=== PATIENT | female | born 2000 | race Caucasian/White ===

== ENCOUNTER 2023-01-16 13:50 | Inpatient (IN) | payer OTHER, SELFPAY ==
[2023-01-16] VITALS (75 sets, daily range): BP systolic 111–143; BP diastolic 69–96; PULSE 51–164; RESP 15–20; TEMP 36.2–37.2; O2SAT 82–100; BMI 27.6
--- NOTE | 2023-01-16 14:51 | WPDOBADMIT ---
Obstetrics - Admit Note Admission Note: record reviewed. No pertinent additions to the history and/or any subsequent changes in the physical findings that are not consistent with the expected course of the were found. Admitted to LD in labor, AROM, moderate amount of clear, odorless fluid, anticipate vaginal delivery Additions to the history and/or subsequent changes in the physical findings follow. None.
[2023-01-16] MEDS: LACTATED RINGERS 1,000 ML 125 ML IV CONT ×2 (15:05→15:43)
[2023-01-16] MEDS: ONDANSETRON INJ 4 MG/2 ML VIAL IV PUSH (15:18)
[2023-01-16 15:20] LABS: Basophils Absolute Auto 0.1 K/mm3 (0.0-0.1); Basophils Percent Auto 0.5 % (0.2-1.2); Eosinophils Percent Auto 0.3 % (0-4.4); Hematocrit 37.6 % (37.0-47.0); Hemoglobin 12.6 g/dL (12.0-15.0); Immature Granulocyte Absolute 0.06 K/mm3 (0.00-0.031); Immature Granulocyte Percent A 0.6 % (0-0.5); Lymphocytes Absolute Auto 0.86 K/mm3 (0.9-3.2); Lymphocytes Percent Auto 8.7 % (18.3-44.2); Mean Corpuscular HGB Conc 33.5 g/dl (32-36); Mean Corpuscular Hemoglobin 30.7 pg (26-34); Mean Corpuscular Volume 91.5 fl (80-100); Mean Platelet Volume 10.4 fl (7.4-10.4); Monocytes Absolute Auto 0.5 K/mm3 (0.1-0.6); Neutrophils Absolute Auto 8.4 K/mm3 (1.3-6.7); Neutrophils Percent Auto 84.9 % (45.5-73.1); Platelet Count Result 216 k/mm3 (150-375); Red Blood Count 4.11 M/mm3 (4.2-5.4); Red Cell Distribution Width 12.5 % (11.5-14.5); White Blood Count 9.9 K/mm3 (4.5-10.0)
--- NOTE | 2023-01-16 15:37 | WPDANESEPP ---
Anes - Eval Pre Procedure Procedure: epidural Date/Time: 01/16/23 15:37 Preop Diagnosis: labor pain Pre Op Diagnosis: Labor Patient Data Age: 22 Gender: F Height: 1.73 m Weight: 82.5 kg Last Vital Signs Pulse 81 01/16/23 15:31 BP 132/88 01/16/23 15:31 Allergies Allergy/AdvReac Type Severity Reaction Status Date / Time verapamil Allergy Hives Verified 12/21/22 13:35 Home Medications Medication Instructions Recorded Confirmed Type prenat.vits,иван,deg-dohm-dremq 1 tablet 12/21/22 History sertraline 50 mg tablet mg 12/21/22 History Laboratory Tests 01/16/23 14:51 WBC 9.9 K/mm3 (4.5-10.0) RBC 4.11 L M/mm3 (4.2-5.4) Hgb 12.6 g/dL (12.0-15.0) Hct 37.6 % (37.0-47.0) MCV 91.5 fl (80-100) MCH 30.7 pg (26-34) MCHC 33.5 g/dl (32-36) RDW 12.5 % (11.5-14.5) Plt Count 216 k/mm3 (150-375) MPV 10.4 fl (7.4-10.4) Immature Gran % (Auto) 0.6 H % (0-0.5) Neut % (Auto) 84.9 H % (45.5-73.1) Lymph % (Auto) 8.7 L % (18.3-44.2) [place] % (Auto) 5.0 % (2.6-8.5) Eos % (Auto) 0.3 % (0-4.4) Baso % (Auto) 0.5 % (0.2-1.2) Lymph # (Auto) 0.86 L K/mm3 (0.9-3.2) [place] # (Auto) 0.5 K/mm3 (0.1-0.6) Eos # (Auto) 0.0 K/mm3 (0-0.3) Baso # (Auto) 0.1 K/mm3 (0.0-0.1) Abs Immat Gran (auto) 0.06 H K/mm3 (0.00-0.031) Absolute Neuts (auto) 8.4 H K/mm3 (1.3-6.7) Absolute Nucleated RBC 0.0 K/mm3 (0.0-0.012) Nucleated RBC % 0.0 % (0.0-0.2) RPR Pending Patient hx anesthesia problems: none Family hx anesthesia problems: none Results Review: All pre-operative results and documents have been reviewed as part of the pre-operative evaluation. PMFSH Family History Family History Father Hypertension Afib Social History Social History Substance use: never Spiritual care concerns: No Comments patient medical hx: migraine, marijuana use, GERD, IBS, anxiety Exam Day of Procedure 01/16/23 15:37
[2023-01-16] MEDS: OXYTOCIN 30 UNITS/NS 500 ML 30 UNITS/500 ML BAG 999 UNITS IV CONT (18:57)
--- NOTE | 2023-01-16 19:10 | PM.OBPRVD ---
OB - Delivery Note Procedure Delivery date: 01/16/23 Procedure: Delivery augmentation: Rupture of Membranes Laceration Description: None (clitoral) and Perineal - 1st Degree Delivery repair: vicryl Specimen: No Quantitative Blood Loss (ml): 250 Anesthesia type: Epidural Disposition: Floor Baby Date of : 01/16/23 Time of : 18:56 Weeks of gestation at delivery: 39 Infant gender: Male presentation: vertex position: Left Occiput Anterior Placenta delivery description: Spontaneous Cord Vessel Description: 3 Vessels, Clamped/Cut and Delayed Cord Clamping score one minute: 8 score five minutes: 9
[2023-01-16] MEDS: OXYTOCIN 30 UNITS/NS 500 ML 30 UNITS/500 ML BAG 125 UNITS IV CONT (19:31)
[2023-01-16] MEDS: BENZOCAINE 20% AER SPR (*SP) 56 GM CAN 1 SPRAY TOPICAL (21:14)
[2023-01-16] MEDS: WITCH HAZEL 40 PADS 1 PAD TOPICAL (21:14)
[2023-01-16] MEDS: IBUPROFEN 600 MG TABLET PO (21:22)
--- NOTE | 2023-01-16 21:47 | PC.NURSE ---
Patient transferred to post room #290 per wheelchair from labor and delivery. Support person present. Oriented to unit, room, information board, rooming in, admission packet and security measures. Patient verbalizes understanding.
[2023-01-16] MEDS: SERTRALINE HCL 50 MG TABLET 100 MG PO (22:19)
[2023-01-17] MEDS: ACETAMINOPHEN 325 MG TABLET 650 MG PO ×3 (00:06→20:15)
[2023-01-17 05:00] VITALS: BP 132/95; PULSE 81; RESP 18; TEMP 36.6
[2023-01-17] MEDS: IBUPROFEN 600 MG TABLET PO ×3 (05:04→16:42)
[2023-01-17 05:28] LABS: Hematocrit 30.4 % (37.0-47.0); Hemoglobin 10.2 g/dL (12.0-15.0)
[2023-01-17 08:15] VITALS: BP 132/93; PULSE 83; RESP 18; TEMP 36.5
--- NOTE | 2023-01-17 10:03 | PM.OBPNVD ---
OB - PN: Subj Subjective Date/time seen: 01/17/23 10:03 Patient comments: no complaints, pain well controlled, incisional pain, tolerating diet and flatus present OB - PN: Obj Data Labs 01/17/23 05:01 Labs: Laboratory Results - last 24 hr 01/16/23 01/17/23 14:51 05:01 WBC 9.9 RBC 4.11 L Hgb 12.6 10.2 L Hct 37.6 30.4 L MCV 91.5 MCH 30.7 MCHC 33.5 RDW 12.5 Plt Count 216 MPV 10.4 Immature Gran % (Auto) 0.6 H Neut % (Auto) 84.9 H Lymph % (Auto) 8.7 L [place] % (Auto) 5.0 Eos % (Auto) 0.3 Baso % (Auto) 0.5 Lymph # (Auto) 0.86 L [place] # (Auto) 0.5 Eos # (Auto) 0.0 Baso # (Auto) 0.1 Abs Immat Gran (auto) 0.06 H Absolute Neuts (auto) 8.4 H Absolute Nucleated RBC 0.0 Nucleated RBC % 0.0 Blood Type O Positive Antibody Screen Negative OB - PN A/P Plan day: 1 Plan: routine care Comments: No problems, routine care Time Spent With Patient Time: Total time spent is greater than 50% in coordination of care (as documented) at patient's floor/unit and/or counseling patient: Exam Const: General: comfortable, no acute distress and alert Resp: Effort & Inspection: normal respiratory effort Auscultation: no crackles, no rales and no rhonchi Cardio: Rate: regular rate Heart sounds: no click, no murmurs and no rubs GI: Inspection: non-distended GI Palp: No Tenderness to palpation present (GI) Auscultation: normal bowel sounds Other: Incision - CDI Extrem: General: normal to inspection, no pedal edema and no calf tenderness
[2023-01-17] MEDS: MULTIVIT/MIN/PREN/FOL AC/IRON TABLET 1 TAB PO (10:40)
[2023-01-17] MEDS: DOCUSATE SODIUM 100 MG CAPSULE PO (10:40)
[2023-01-17 11:30] VITALS: BP 108/76; PULSE 87; RESP 18; TEMP 37.2
[2023-01-17 20:00] VITALS: BP 116/79; PULSE 92; RESP 16; TEMP 36.4
[2023-01-17] MEDS: SERTRALINE HCL 50 MG TABLET 100 MG PO (23:00)
--- NOTE | 2023-01-18 07:11 | PM.OBPNVD ---
OB - PN: Subj Subjective Date/time seen: 01/18/23 07:11 s/p vaginal delivery day 2 OB - PN: Obj Data Labs 01/17/23 05:01 OB - PN A/P Time Spent With Patient Time: Total time spent is greater than 50% in coordination of care (as documented) at patient's floor/unit and/or counseling patient: Review of Systems Review of Systems: All systems reviewed & are unremarkable except as noted in HPI and below Exam Const: General: cooperative, healthy appearing and comfortable Chest: Chest palpation & inspection: normal inspection of the chest Resp: Effort & Inspection: normal respiratory effort Cardio: Rate: regular rate Rhythm: regular rhythm GI: Other: soft Skin: General skin exam: normal color Extrem: Right lower extremity: normal to inspection Left lower extremity: normal to inspection Psych: Appearance: grossly normal
--- NOTE | 2023-01-18 07:14 | PM.OBDSVD ---
DS: Admitting Diagnosis Discharge Date 01/18/23 Admitting Diagnosis labor OB - DS: Summary OB Procedures : None OB Procedures Intrapartum: Spontaneous Vag Delivery OB Procedures: : None Time Spent with Patient Time attestation: Total time spent providing and/or coordinating discharge services: Discharge Plan Discharge Attending physician on discharge: Avery Umanzor Discharging Clinician: Kaleigh Fragoso Patient Disposition: Home, Self-Care Activity: pelvic rest Diet: regular Patient Instructions: Antibiotic Form Stand Alone Forms: General Discharge Information Follow-up/Referrals: Kaleigh Fragoso, ZURIM [Certified Nurse Uphol[employer]] - 4 Weeks Discharge Medications: New ibuprofen 600 mg Tablet 600 mg PO Q6H PRN (Reason: Cramping) Qty: 30 0RF Continued sertraline 100 mg tablet 100 mg PO HS PNV cmb#95-ferrous fumarate-FA [] 28 mg iron- 800 mcg Tablet 1 tablet PO DAILY Date of admission: 01/16/23 13:50 Primary Care Provider: Claire,Renée Angel Admitting Provider: Avery Umanzor Attending physician on admission: Avery Umanzor Condition: Stable
[2023-01-18] MEDS: WITCH HAZEL 40 PADS 1 PAD TOPICAL (08:00)
[2023-01-18] MEDS: IBUPROFEN 600 MG TABLET PO (08:00)
[2023-01-18] MEDS: DOCUSATE SODIUM 100 MG CAPSULE PO (08:00)
[2023-01-18] MEDS: BENZOCAINE 20% AER SPR (*SP) 56 GM CAN 1 SPRAY TOPICAL (08:00)
[2023-01-18 08:20] VITALS: BP 114/74; PULSE 81; RESP 18; TEMP 36.9; O2SAT 98
[2023-01-18] MEDS: MULTIVIT/MIN/PREN/FOL AC/IRON TABLET 1 TAB PO (09:00)
[2023-01-18 13:50] LABS: Rapid Plasma Reagin Non-Reactive (NonReactive)
[2023-01-19 11:24] VITALS: BP 117/77; PULSE 92; RESP 18; TEMP 37.3; O2SAT 100
--- NOTE | 2023-01-20 23:23 | PM.OBDSVD ---
DS: Admitting Diagnosis Discharge Date 01/18/23 Admitting Diagnosis labor DS: Discharge Diagnosis Discharge Diagnosis (1) Vaginal delivery: Code(s): O80 - Encounter for full-term uncomplicated delivery Status: Acute OB - DS: Summary OB Procedures : None OB Procedures Intrapartum: Spontaneous Vag Delivery OB Procedures: : None Time Spent with Patient Time attestation: Total time spent providing and/or coordinating discharge services: Discharge Plan Discharge Attending physician on discharge: Avery Umanzor Consulting providers: Kaleigh Fragoso; Blessing Uriostegui Discharging Clinician: Kaleigh Fragoso Patient Disposition: Home, Self-Care Activity: pelvic rest Diet: regular Discharge Instructions: Education: Mom and Baby Guide Given to: Mother Follow-Up: Call your delivering provider's office for an appointment to be seen in: 4 Weeks Mom and baby [facility] come [facility] for the follow-up appointment. Appointment Date/Time: January 19, 2023 at 11:00 am What to expect at your follow-up visit: Blood Pressure Check Physical Assessment Call [phone] if you are unable to keep your appointment time. BREAST CARE: * Wear a snug supportive bra. * For engorgement discomfort: Bottle Feeding: * May apply ice packs * No stimulation to breasts. Do NOT pump breasts as this will cause your body to produce more milk. * May take over the counter ibuprofen 600mg every 6 hours to help with pain and swelling, if you desire EPISIOTOMY/PERINEAL CARE: * Until bleeding stops, use your taisha bottle after urinating * Change your pad frequently throughout the day * You may take sitz baths several times a day (fill your bathtub with warm water and soak for 20 minutes.) Do NOT bathe in the water * No tub baths until seen by your physician - You may shower ACTIVITY: * Rest as much as possible. * Do not exercise or lift anything heavier than your baby for about 2 weeks * Avoid stairs or driving as much as possible. * Do not put anything into the vagina. No douching, tampons, or sexual activity until seen by physician. NOTIFY PHYSICIAN IF YOU HAVE ANY QUESTIONS OR IF ANY OF THE FOLLOWING SYMPTOMS OCCUR: * If your vaginal area becomes red, swollen, or more painful than what you have experienced in the hospital. * If your vaginal bleeding becomes foul smelling. * If your vaginal bleeding becomes more heavy than a period or if your bleeding changes from the brownish-red/period color it is now to bright red. However, you may pass an occasional walnut-sized clot once or twice for the first week . * If you experience a sharp, shooting pain in your calves. * If you discover a hard, reddened area on your breast or if you experience flu-like symptoms. DIET: * Eat regular, well-balanced meals. * Drink plenty of fluids daily. Stand Alone Forms: General Discharge Information Follow-up/Referrals: Kaleigh Fragoso CNM [Certified Nurse Dry Cleaning Teacher] - 4 Weeks Discharge Medications: New ibuprofen 600 mg Tablet 600 mg PO Q6H PRN (Reason: Cramping) Qty: 30 0RF Continued sertraline 100 mg tablet 100 mg PO HS PNV cmb#95-ferrous fumarate-FA [] 28 mg iron- 800 mcg Tablet 1 tablet PO DAILY Date of admission: 01/16/23 13:50 Primary Care Provider: Claire,Renée Angel Admitting Provider: Avery Umanzor Attending physician on admission: Avery Umanzor Condition: Stable
== END 2023-01-18 14:30 | disposition home or self-care (01) | DRG 807 ==
LOC: ANHLDR 14:42 → ANHOB2 21:53
PROVIDERS: Advanced Practice Midwife; Admitting Provider Obstetrics & Gynecology; PCP Family Medicine; Visit Provider Obstetrics & Gynecology
DX: O99.324 Drug use complicating childbirth (principal); Z37.0 Single live birth; O70.0 First degree perineal laceration during delivery; F12.90 Cannabis use, unspecified, uncomplicated; Z3A.39 39 weeks gestation of pregnancy
CPT/HCPCS: 36415; 85014; 85018; 85025; 86592; 86850; 86900; 86901; A9270; J2405; J2590; J2795; J7120